=== PATIENT | female | born 1990 | race Caucasian/White ===

== ENCOUNTER 2017-08-24 13:32 | Emergency (ER) | payer BC ==
[2017-08-24 14:33] VITALS: BP 109/64
--- NOTE | 2017-08-24 15:19 | UC ---
Complaint Female HPI - HPI Summary HPI Summary: Dysuria for one day--also notices odor in the morning - History Of Current Complaint Hx Obtained From: Patient Hx Last Menstrual Period: finished 08/22/17 ?: No Onset/Duration: Sudden Onset, Lasting Days - 1, Still Present Timing: Constant Severity Initially: Mild Severity Currently: Mild Character: Burning Aggravating Factor(s): Urination Alleviating Factor(s): Position Associated Signs And Symptoms: Positive: Negative <Sandra Trotter - Last Filed: 08/24/17 15:52> <Jordyn Mendoza - Last Filed: 08/24/17 16:17> - History Of Current Complaint Chief Complaint: UCGU Stated Complaint: UTI SYMPTOMS Time Seen by Provider: 08/24/17 15:17 - Allergies/Home Medications Allergies/Adverse Reactions: Allergies Allergy/AdvReac Type Severity Reaction Status Date / Time No Known Allergies Allergy Verified 08/24/17 14:28 Home Medications: Home Medications Bcp 1 tab DAILY 08/24/17 [History Confirmed 08/24/17] PMH/Surg Hx/FS Hx/Imm Hx Previously Healthy: Yes - Surgical History Surgical History: None - Family History Known Family History: Positive: None - Social History Occupation: Employed Full-time Lives: With Family Alcohol Use: Occasionally Substance Use Type: None Smoking Status (MU): Never Smoked Tobacco <Sandra Trotter - Last Filed: 08/24/17 15:52> Review of Systems Constitutional: Negative Skin: Negative Eyes: Negative ENT: Negative Respiratory: Negative Cardiovascular: Negative Gastrointestinal: Negative Genitourinary: Dysuria Motor: Negative Neurovascular: Negative Musculoskeletal: Negative Neurological: Negative Psychological: Negative Is Patient Immunocompromised?: No All Other Systems Reviewed And Are Negative: Yes <Sandra Trotter - Last Filed: 08/24/17 15:52> Physical Exam Triage Information Reviewed: Yes Appearance: Well-Appearing, No Pain Distress, Well-Nourished Vital Signs: Initial Vital Signs Temp 98 F 08/24/17 14:29 Pulse 75 08/24/17 14:29 Resp 16 08/24/17 14:29 BP 109/64 08/24/17 14:29 Pulse Ox 100 08/24/17 14:29 Vital Signs Reviewed: Yes Eye Exam: Normal Eyes: Positive: Conjunctiva Clear ENT Exam: Normal ENT: Positive: Normal ENT inspection, Hearing grossly normal. Negative: Nasal congestion, Trismus, Muffled voice, Hoarse voice Neck exam: Normal Neck: Positive: Supple, Nontender Respiratory Exam: Normal Respiratory: Positive: Chest non-tender, Lungs clear, Normal breath sounds, No respiratory distress Cardiovascular Exam: Normal Cardiovascular: Positive: RRR, No Murmur, Pulses Normal, Brisk Capillary Refill Abdominal Exam: Normal Abdomen Description: Positive: Nontender, No Organomegaly, Soft. Negative: CVA Tenderness (R), CVA Tenderness (L), Distended, Guarding, McBurney's Point Tenderness, Peritoneal Signs Bowel Sounds: Positive: Present Musculoskeletal Exam: Normal Musculoskeletal: Positive: Strength Intact, ROM Intact Neurological Exam: Normal Neurological: Positive: Alert, Muscle Tone Normal Psychological Exam: Normal Skin Exam: Normal <Sandra Trotter - Last Filed: 08/24/17 15:52> Vital Signs: Initial Vital Signs Temp 98 F 08/24/17 14:29 Pulse 75 08/24/17 14:29 Resp 16 08/24/17 14:29 BP 109/64 08/24/17 14:29 Pulse Ox 100 08/24/17 14:29 <Jordyn Mendoza - Last Filed: 08/24/17 16:17> Complaint Female Dx - Course Course Of Treatment: increase fluids, culture urine follow with pcp - Differential Dx/Diagnosis Provider Diagnoses: dysuria <Sandra Trotter - Last Filed: 08/24/17 15:52> Discharge <Sandra Trotter - Last Filed: 08/24/17 15:52> <Jordyn Mendoza - Last Filed: 08/24/17 16:17> - Discharge Plan Condition: Stable Disposition: HOME Patient Education Materials: Dysuria (ED) Referrals: Jasbir Bowen MD [Primary Care Provider] - If Needed Attestation Statement User Type: Provider - I was available for consult. This patient was seen by the VARGHESE. The patient was not presented to, seen by, or examined by me. Christi <Jordyn Mendoza - Last Filed: 08/24/17 16:17>
== END 2017-08-24 15:37 | disposition home or self-care (01) ==
LOC: UCCORT 13:32
DX: R30.0 Dysuria (principal); Z32.02 Encounter for pregnancy test, result negative
CPT/HCPCS: 81003; 84702; 87077; 87086; 87184; 87186; 87491; 87591; 99211; G0463

== ENCOUNTER 2017-09-15 07:32 | Emergency (ER) | payer BC ==
[2017-09-15 07:42] VITALS: BP 126/72
--- NOTE | 2017-09-15 08:28 | UC ---
Back Pain HPI - HPI Summary HPI Summary: 26 feamale with 2 week hx of low back pain which occasionally radiates to abd no dysuria no urgency no frequency had a vag d/c a week or two ago pain worse with lifting no painful intercourse currently on day 4 of period - History of Current Complaint Chief Complaint: UCGU Stated Complaint: LOW BACK PAIN Time Seen by Provider: 09/15/17 08:00 Hx Obtained From: Patient Hx Last Menstrual Period: 09/11/17 Onset/Duration: Gradual Onset, Lasting Weeks Timing: Constant Severity Initially: Moderate Severity Currently: Moderate Pain Intensity: 6 Pain Scale Used: 0-10 Numeric Back Pain: Is Diffuse - lower, Radiates To - abd Character: Dull, Aching Aggravating Factor(s): Movement, Walking Associated Signs And Symptoms: Positive: Abdominal Pain. Negative: Swelling, Redness, Bruising, Fever, Weakness, Numbness, Tingling, Flank Pain, Bladder Incontinence, Bowel Incontinence, Weight Loss, Pain with Weight Bearing - Allergies/Home Medications Allergies/Adverse Reactions: Allergies Allergy/AdvReac Type Severity Reaction Status Date / Time No Known Allergies Allergy Verified 09/15/17 07:38 PMH/Surg Hx/FS Hx/Imm Hx Previously Healthy: Yes - Surgical History Surgical History: None - Family History Known Family History: Positive: None - Social History Alcohol Use: Occasionally Substance Use Type: None Smoking Status (MU): Never Smoked Tobacco Review of Systems Constitutional: Negative Skin: Negative Eyes: Negative ENT: Negative Respiratory: Negative Cardiovascular: Negative Gastrointestinal: Abdominal Pain Genitourinary: Negative Motor: Negative Neurovascular: Negative Musculoskeletal: Myalgia Neurological: Negative Psychological: Negative Is Patient Immunocompromised?: No All Other Systems Reviewed And Are Negative: Yes Physical Exam Triage Information Reviewed: Yes Appearance: Well-Appearing, No Pain Distress, Well-Nourished Vital Signs: Initial Vital Signs Temp 97.2 F 09/15/17 07:38 Pulse 107 09/15/17 07:38 Resp 15 09/15/17 07:38 BP 126/72 09/15/17 07:38 Pulse Ox 98 09/15/17 07:38 Vital Signs Reviewed: Yes Eyes: Positive: Conjunctiva Clear ENT: Positive: Hearing grossly normal. Negative: Nasal congestion, Nasal drainage, Trismus, Muffled voice, Hoarse voice Neck: Positive: Nontender, No Lymphadenopathy Respiratory: Positive: Lungs clear, Normal breath sounds, No respiratory distress, No accessory muscle use Cardiovascular: Positive: RRR, No Murmur Abdomen Description: Positive: Nontender, No Organomegaly, Soft. Negative: CVA Tenderness (R), CVA Tenderness (L), Distended, Guarding Bowel Sounds: Positive: Present Pelvic Exam: Positive: External Exam Normal, Bimanual Exam Normal, No Cerv. Motion Tender, No Masses, Active Bleeding - on period/scant blood per os Musculoskeletal Exam: Normal Neurological: Positive: Alert Psychological Exam: Normal Skin Exam: Normal Back Pain Course/Dx - Differential Dx/Diagnosis Provider Diagnoses: back pain of uncertain cause. possible BV Discharge - Sign-Out/Discharge Documenting (check all that apply): Discharge - Discharge Plan Condition: Stable Disposition: HOME Prescriptions: Ibuprofen TAB* [Motrin TAB*] 600 mg PO Q6H PRN #40 tab PRN Reason: Pain metroNIDAZOLE [Flagyl 500 MG TAB] 500 mg PO BID #14 tab Patient Education Materials: Bacterial Vaginosis (ED), Back Pain (ED) Referrals: Jasbir Bowen MD [Primary Care Provider] - 3 Days Additional Instructions: I am unsure of the cause of your back pain I suggest you see your MD later this week for revaluation TO ER FOR WORSENING SYMPTOMS you are welcome to return here if unable to get in to see your MD tests are pending you may have bacterial vaginosis but this would not account for your pain recheck for fever >101 or vomiting - Billing Disposition and Condition Condition: STABLE Disposition: HOME
== END 2017-09-15 08:47 | disposition home or self-care (01) ==
LOC: UCCORT 07:32
DX: M54.5 Low back pain (principal)
CPT/HCPCS: 81003; 87480; 87491; 87510; 87591; 87661; 99212; G0463